=== PATIENT | female | born 1985 | race Caucasian/White ===

== ENCOUNTER 2016-06-25 00:59 | Inpatient (IN) | payer BC, SELFPAY ==
[~2016-06-25] VITALS: Ht 162.6 cm; Wt 85.3 kg
[~2016-06-25 00:59] MED LIST: DICLEGIS DR 101 EACH PO; PRENATAL PLUS I1 TAB PO
[2016-06-26] MEDS ORDERED: MOTRIN800 MG PO (12:38)
[2016-06-26] MEDS ORDERED: DERMOPLAST PAIN78 GM TOP (12:38)
[2016-06-26] MEDS ORDERED: LAN-O-SOOTHE7 GM TOP (12:39)
[2016-06-26] MEDS ORDERED: COLACE100 MG PO (12:39)
== END 2016-06-26 14:18 | disposition short-term general hospital (02) | DRG 775 ==
LOC: LDROP 00:59 → LDRIP 01:25
PROVIDERS: ADMIT Family Medicine
PROC: 10E0XZZ Delivery of Products of Conception, External Approach (ICD-10-PCS; principal; 2016-06-25)
PROC: 0KQM0ZZ Repair Perineum Muscle, Open Approach (ICD-10-PCS; principal; 2016-06-25)
DX: O70.1 Second degree perineal laceration during delivery (principal); Z37.0 Single live birth; Z3A.40 40 weeks gestation of pregnancy; Z23 Encounter for immunization
CPT/HCPCS: A9150; J2590